=== PATIENT | female | born 1985 | race Caucasian/White ===

== ENCOUNTER 2017-06-18 13:35 | Emergency (ER) | payer BC, OTHER ==
--- NOTE | 2017-06-18 13:44 | UC ---
Respiratory Complaint HPI - HPI Summary HPI Summary: 31 year old female presents with complains of cough and burning with urination. - History of Current Complaint Stated Complaint: COUGH,URINARY COMPLAINT Time Seen by Provider: 06/18/17 13:43 Hx Obtained From: Patient Hx Last Menstrual Period: 10/29/13 Onset/Duration: Sudden Onset Severity Initially: Moderate Severity Currently: Moderate Pain Scale Used: 0-10 Numeric - 5 - Allergies/Home Medications Allergies/Adverse Reactions: Allergies Allergy/AdvReac Type Severity Reaction Status Date / Time No Known Allergies Allergy Verified 06/18/17 13:41 Home Medications: Home Medications Medroxyprogesterone Acetate (A [Depo-Provera] 06/18/17 [History] Pseudoephedrine-Ibuprofen [Cold & Sinus Relief 30-200 mg] 1 tab PO PRN 06/18/17 [History] PMH/Surg Hx/FS Hx/Imm Hx Previously Healthy: Yes - Surgical History Surgical History: Yes Surgery Procedure, Year, and Place: gallbladder removed - Social History Alcohol Use: Rare Substance Use Type: None Substance Use Comment - Amount & Last Used: DAILY Smoking Status (MU): Never Smoked Tobacco Amount Used/How Often: marijuana daily - Immunization History Most Recent Influenza Vaccination: 2013 Most Recent Tetanus Shot: unknown Most Recent Pneumonia Vaccination: never Review of Systems Constitutional: Negative Skin: Negative Eyes: Negative ENT: Nasal Discharge, Sinus Congestion, Sinus Pain/Tenderness Respiratory: Cough Cardiovascular: Negative Gastrointestinal: Negative Genitourinary: Frequency, Urgency Motor: Negative Neurovascular: Negative Musculoskeletal: Negative Neurological: Negative Psychological: Negative Is Patient Immunocompromised?: Yes All Other Systems Reviewed And Are Negative: Yes Physical Exam Triage Information Reviewed: Yes Vital Signs Reviewed: Yes Eye Exam: Normal ENT: Positive: Pharyngeal erythema, Nasal congestion, Nasal drainage, Sinus tenderness Dental Exam: Normal Neck exam: Normal Neck: Positive: 1 Respiratory: Positive: Respiratory distress, Wheezing Cardiovascular Exam: Normal Abdominal Exam: Normal Musculoskeletal Exam: Normal Neurological Exam: Normal Psychological Exam: Normal Skin Exam: Normal Respiratory Course/Dx - Differential Dx/Diagnosis Provider Diagnoses: BRONCHITIS. UTI Discharge - Discharge Plan Condition: Stable Disposition: HOME Prescriptions: Albuterol HFA INHALER* [Ventolin HFA Inhaler*] 1 puff INH Q6H PRN #1 mdi PRN Reason: Wheezing Amoxicillin/Clavulanate TAB* [Augmentin TAB 875*] 875 mg PO BID #20 tab Guaifenesin-Codeine [Cheratussin AC] 1 teasp PO Q8H PRN #120 ml MDD 15 ml PRN Reason: Cough Methylprednisolone [Medrol Dosepak 4 MG*] 4 mg PO .SEE RUSSELL INSTRUCTION #21 tab Patient Education Materials: Urinary Tract Infection in Women (ED), Acute Cough (ED) Referrals: Gerber Alvarez MD [Medical Doctor] -
[2017-06-18 13:50] VITALS: BP 116/62
== END 2017-06-18 14:20 | disposition home or self-care (01) ==
LOC: UCCORT 13:35
DX: J40 Bronchitis, not specified as acute or chronic (principal); N39.0 Urinary tract infection, site not specified; Z32.02 Encounter for pregnancy test, result negative
CPT/HCPCS: 81003; 84702; 87077; 87086; 87186; 99212; G0463